=== PATIENT | male | born 1975 | race Caucasian/White ===

== ENCOUNTER 2017-05-22 09:47 | Day surgery (SDC) | payer OTHER ==
[~2017-05-22 09:47] MED LIST: Bupivacaine 25%/EPINEPHrine/PF 30 ML ONE; Lactated Ringers 1,000 ML IV SCH; ceFAZolin 2 GM in Premix Bag 1 BAG IV ONE
[2017-05-22] MEDS ORDERED: Propofol 200 MG/20 ML SDV ONE ×2 (10:29→12:15)
[2017-05-22] MEDS ORDERED: Midazolam 1 MG/ML 2 ML SDV ONE (10:29)
[2017-05-22] MEDS ORDERED: fentaNYL 100 MCG/2 ML SDV ONE (10:29)
[2017-05-22] MEDS ORDERED: Ondansetron 4 MG/2 ML SDV ONE (10:30)
[2017-05-22] MEDS ORDERED: Ketorolac 30 MG/ML SDV ONE (10:30)
[2017-05-22] MEDS ORDERED: Rocuronium 10 MG/ML 10 ML Syringe ONE (10:30)
[2017-05-22] MEDS ORDERED: Neostigmine Methylsulfate 1 MG/ML 5 ML Syringe ONE (10:30)
--- NOTE | 2017-05-22 11:10 | PCM.PREANE ---
Preanesthetic Assessment - Anesthesia/Transfusion/Family Hx Anesthesia History: No Prior Anesthesia Family History of Anesthesia Reaction: No Transfusion History: No Prior Transfusion(s) Intubation History: Unknown - Review of Systems General: No Symptoms Pulmonary: No Symptoms Cardiovascular: No Symptoms Gastrointestinal: No Symptoms Neurological: No Symptoms Other: Reports: None - Physical Assessment O2 Sat by Pulse Oximetry: 96 Respiratory Rate: 16 Vital Signs: Last Vital Signs Temp 36 C 05/22/17 09:55 Pulse 81 05/22/17 09:55 Resp 16 05/22/17 09:55 BP 142/75 H 05/22/17 09:55 Pulse Ox 96 05/22/17 09:55 Height: 1.83 m Weight: 104.326 kg ASA Class: 2 Mental Status: Alert & Oriented x3 Airway Class: Mallampati = 2 Dentition: Reports: Normal Dentition (small chips on front upper incisors) Thyro-Mental Finger Breadths: 2 Mouth Opening Finger Breadths: 3 ROM/Head Extension: Full Lungs: Clear to Auscultation, Normal Respiratory Effort Cardiovascular: Regular Rate, Regular Rhythm - Allergies Allergies/Adverse Reactions: Allergies Allergy/AdvReac Type Severity Reaction Status Date / Time lithium Allergy Nausea and Verified 05/17/17 11:57 Vomiting - Blood Blood Available: No - Anesthesia Plan Pre-Op Medication Ordered: None - Acknowledgements Anesthesia Type Planned: MAC (general anesthesia back-up) Pt an Appropriate Candidate for the Planned Anesthesia: Yes Alternatives and Risks of Anesthesia Discussed w Pt/Guardian: Yes Pt/Guardian Understands and Agrees with Anesthesia Plan: Yes PreAnesthesia Questionnaire HEENT History: Reports: Other (See Below) Other HEENT History: sebaceous cyst to rt eye, states does not affect his vision Psychiatric History: Reports: ADHD, Other (See Below) Other Psychiatric History: states has recently been tested to ADHD but has not been told the results Endocrine/Metabolic History: Reports: Obesity/BMI 30+ - Past Surgical History Head Surgeries/Procedures: Reports: None - SUBSTANCE USE Smoking Status *Q: Current Every Day Smoker Tobacco Use Within Last Twelve Months: Cigarettes Recreational Drug Use History: No - HOME MEDS Home Medications: Home Meds . [No Known Home Meds] 05/17/17 [History] - CURRENT (IN HOUSE) MEDS Current Meds: Current Medications Lactated Ringer's (Ringers, Lactated) 1,000 mls @ 125 mls/hr IV ASDIRECTED JENA Last Admin: 05/22/17 10:02 Dose: 125 mls/hr Discontinued Medications Fentanyl (Sublimaze) Confirm Administered Dose 200 mcg .ROUTE .STK-MED ONE Stop: 05/22/17 10:30 Glycopyrrolate () Confirm Administered Dose 1 mg .ROUTE .STK-MED ONE Stop: 05/22/17 10:31 Cefazolin Sodium/Dextrose 2 gm (/ Premix) 50 mls @ 100 mls/hr IV ONETIME ONE Stop: 05/22/17 05:29 Bupivacaine HCl/Epinephrine Bitart (Sensorc Mpf 0.25%-Epi [id number]) Confirm Administered Dose 30 mls @ as directed .ROUTE .STK-MED ONE Stop: 05/22/17 07:19 Ketorolac Tromethamine (Toradol) Confirm Administered Dose 30 mg .ROUTE .STK- MED ONE Stop: 05/22/17 10:31 Lidocaine HCl (Xylocaine-Mpf 1%) Confirm Administered Dose 5 ml .ROUTE .STK-MED ONE Stop: 05/22/17 10:31 Midazolam HCl (Versed 1 Mg/Ml) Confirm Administered Dose 2 mg .ROUTE .STK-MED ONE Stop: 05/22/17 10:30 Neostigmine Methylsulfate (Neostigmine) Confirm Administered Dose 5 mg .ROUTE .STK-MED ONE Stop: 05/22/17 10:31 Ondansetron HCl (Zofran) Confirm Administered Dose 4 mg .ROUTE .STK-MED ONE Stop: 05/22/17 10:31 Propofol (Diprivan 20 Ml) Confirm Administered Dose 200 mg .ROUTE .STK-MED ONE Stop: 05/22/17 10:30 Rocuronium [place] (Zemuron) Confirm Administered Dose 100 mg .ROUTE .STK-MED ONE Stop: 05/22/17 10:31
[2017-05-22] MEDS ORDERED: Acetaminophen/oxyCODONE 325-10 MG Tab PO PRN (11:47)
[2017-05-22 14:21] VITALS: BP 135/77
--- NOTE | 2017-05-22 20:12 | OR ---
SURGEON: Don Coello MD DATE OF PROCEDURE: 05/22/2017 PREOPERATIVE DIAGNOSIS: Back mass. POSTOPERATIVE DIAGNOSIS: Back mass. PROCEDURE PERFORMED: Excision biopsy. COMPLICATIONS: None. FINDING: Cheese-like material like a sebaceous cyst, size of 1 cm, and incision is 3.1 cm. PROCEDURE IN DETAIL: The patient was taken to the operating room and placed in the supine position. Upon induction of an LMA and the patient was repositioned with a sand bag into left decubitus position, left side down and right side up. The patient was then prepped and draped in sterile fashion. Time-out was then called, the patient identified, procedure identified, and antibiotic was given. Using a fishmouth incision including the skin was excised around the mass, 3.1 cm incision, a measuring 1 cm cheese-like material like sebaceous cyst was located. The mass was a little bit towards the right side and on the back. Following good hemostasis was achieved by using electrocautery followed with irrigation. The wound was closed with 0 Vicryl for the deep space and then 3-0 Ethilon on the skin and then followed by appropriate dressing. The patient was re-positioned in the supine position, awakened, extubated, and transferred to recovery in hemodynamically stable condition. The patient tolerated the procedure well. There were no intraoperative complications. Dr. Coello was present for the whole procedure. SANJAY / ROSETTE /[id number]
== END 2017-05-22 13:33 | disposition home or self-care (01) ==
LOC: MW.SDS 09:47
PROVIDERS: ATTEND Surgery
DX: L72.0 Epidermal cyst (principal); F17.210 Nicotine dependence, cigarettes, uncomplicated; E66.9 Obesity, unspecified; Z88.8 Allergy status to other drugs, medicaments and biological substances; Z68.31 Body mass index [BMI] 31.0-31.9, adult
CPT/HCPCS: 11401; 88304; J1885; J2250; J2405; J3010; J7120; 00300; J2704